=== PATIENT | male | born 1970 | race Caucasian/White ===

== ENCOUNTER 2020-06-05 09:50 | Emergency (ER) | payer OTHER, SELFPAY ==
--- NOTE | ~2020-06-05 | XR_ITS ---
EXAMINATION: XR knee LT min 4V DATE: 06/05/2020 11:09 INDICATION: Left knee pain after slipping and anatomic TECHNIQUE: Anteroposterior, 2 oblique, sunrise and crosstable lateral views of the left knee were obt ained COMPARISON: None. FINDINGS: Alignment is normal. No fracture. And space appear normal on nonweightbearing imaging. No joint effu nikhil/layering lipohemarthrosis. Enthesophytes at the patella and at the tibial insertion of the pes a nserinus. Soft tissues are unremarkable. IMPRESSION: 1. No left knee joint effusion or acute osseous abnormality. Reviewed, dictated and finalized at location A.
[2020-06-05 10:16] VITALS: BP 118/81; PULSE 67; RESP 14; TEMP 36.9; O2SAT 99
--- NOTE | 2020-06-05 10:41 | ED.LOWEXIN ---
HPI - Extremity Injury (Lower) General Chief Complaint: Extremity Injury, Lower Stated Complaint: left Knew Injury Time Seen by Provider: 06/05/20 10:41 Source: patient Mode of arrival: ambulatory Limitations: no limitations History of Present Illness HPI Narrative: Jason Christensen is a 50 yo male with no PMH [place] - with difficulty walking and moving knee at all. States is hard to straighten, bend, feels unstable. Related Data Allergies Allergy/AdvReac Type Severity Reaction Status Date / Time No Known Allergies Allergy Verified 06/05/20 10:31 Review of Systems Review of Systems: Narrative: CONSTITUTIONAL: Denies fever, chills, sweats. EYES: Denies visual changes, redness, discharge. ENT: Denies rhinorrhea, congestion, sore throat, otalgia. CARDIOVASCULAR: Denies chest pain, palpitations, edema. RESPIRATORY: Denies dyspnea, wheezing, cough GASTROINTESTINAL: Denies abdominal pain, nausea, vomiting, diarrhea. GENITOURINARY: Denies dysuria, hematuria, abnormal discharge SKIN: Denies rash or itching. NEUROLOGIC: Denies numbness, or focal weakness. PSYCHIATRIC: Denies anxiety or depression. Right knee pain after fall on back, limited ROM PMFSH Family History Family History (Updated 06/05/20 @ 11:00 by Marylou Centeno CNP) Other No acute medical problems Social History Social History (Updated 06/05/20 @ 11:00 by Marylou Centeno CNP) Smoking status: Never smoker Alcohol intake: current Comments At time of signature, I agree with nursing past medical, surgical, social and family history. There is no relevant family history pertinent to the presenting complaint. Exam Narrative: Exam Narrative: GENERAL: This is a well-nourished, well-developed patient, in mild distress. HEAD: normocephalic, atraumatic. EYES: Sclera clear/white. Vision is grossly intact. EARS: External ears normal. Hearing grossly intact. NOSE: External nose normal without nasal discharge, nares without redness, no rhinorrhea. THROAT: Mucous membranes moist, NECK: Neck supple, CARDIOVASCULAR: Regular rate and rhythm without murmurs, gallops, or rubs. RESPIRATORY: Clear to auscultation. Breath sounds equal bilaterally. No wheezes, rales, or rhonchi. GASTROINTESTINAL: Abdomen soft, SKIN: warm, intact with no suspicious lesions or rash, good texture and turgor. NEURO: awake, alert, and oriented to person, place and time. There were no obvious focal neurologic abnormalities. Steady gait EXTREMITIES: Normal range of motion. Unable to fully extend or flex knee without pain, no ligament attachment pain, when attempts to stand knee feels unstable, unable to move laterally at all BACK: Nontender without deformity Course Course Emergency Course: X-ray of knee Knee immobilizer Toradol in office with pain medication on discharge and to follow-up with orthopedist Vital Signs Vital signs: Vital Signs Temperature 98.4 F 06/05/20 10:16 Pulse Rate 67 06/05/20 10:16 Respiratory Rate 14 06/05/20 10:16 Blood Pressure 118/81 06/05/20 10:16 Pulse Oximetry 99 06/05/20 10:16 Temperature 98.4 F 06/05/20 10:16 Pulse Rate 67 06/05/20 10:16 Respiratory Rate 14 06/05/20 10:16 Blood Pressure 118/81 06/05/20 10:16 Pulse Oximetry 99 06/05/20 10:16 MDM - Extremity Injury (Lower) Differential Diagnosis Differential diagnosis: Likely ankle sprain and strain, acute internal derangement of knee and other Discharge Plan Discharge Clinical Impression: Knee MCL sprain Qualifiers: Encounter type: initial encounter Laterality: left Qualified Code(s): S83.412A - Sprain of medial collateral ligament of left knee, initial encounter Patient Disposition: Home, Self-Care Condition: Stable Instructions: Knee Sprain (DC), Knee Pain (ED) Prescriptions: New ketorolac 10 mg tablet 10 mg PO Q6H PRN (Reason: pain) 5 Days Qty: 20 RF: 0 Follow-up/Referrals: Pineda Stewart [Other] Tanner Mcdonald
[2020-06-05] MEDS: KETOROLAC (*BKC) 60 MG/2 ML VIAL IM (11:13)
== END 2020-06-05 11:52 | disposition home or self-care (01) ==
PROVIDERS: Emergency Provider Nurse Practitioner
DX: S83.412A Sprain of medial collateral ligament of left knee, initial encounter (principal); W19.XXXA Unspecified fall, initial encounter
CPT/HCPCS: 73564; 96372; 99213; G0463; J1885; L1830